=== PATIENT | male | born 1960 | race Caucasian/White ===

== ENCOUNTER → 2024-05-11 09:36 | Outpatient (REF) | payer OTHER, SELFPAY | LOC: HWRAD 09:36 | PROVIDERS: ATTENDING PHYSICIAN Specialist; FAMILY PHYSICIAN Family Medicine | DX: N28.89 Other specified disorders of kidney and ureter (principal) | CPT/HCPCS: 76775 ==

== ENCOUNTER → 2025-01-07 06:52 | Outpatient (REF) | payer OTHER, SELFPAY | LOC: PAVMRI 06:52 | PROVIDERS: ATTENDING PHYSICIAN Orthopaedic Surgery; FAMILY PHYSICIAN Family Medicine | DX: M25.561 Pain in right knee (principal) | CPT/HCPCS: 73721 ==

== ENCOUNTER → 2025-01-11 14:23 | Outpatient (REF) | payer OTHER, SELFPAY ==
[2025-01-11 15:44] LABS: % Basophils 0.1 % (0-2); % Eosinophils 0.8 % (0-6); % Immature Granulocytes 0.3 % (0-0.5); % Lymphocytes 15.4 % (20.5-51.1); % Monocytes 6.9 % (1.7-9.3); % Neutrophils 76.5 % (42.2-75.2); Absolute Eosinophils 0.1 10^3/uL (0-0.7); Absolute Lymphocytes 1.1 10^3/uL (1.2-3.4); Absolute Monocytes 0.5 10^3/uL (0.1-0.6); Absolute Neutrophils 5.4 10^3/uL (1.4-6.5); Hematocrit 45.4 % (39.0-52.0); Hemoglobin 15.4 g/dL (13.0-18.0); Mean Corp Hgb Conc. 33.9 g/dL (33.0-37.0); Mean Corpuscular Hgb 30.6 pg (27.0-31.0); Mean Corpuscular Volume 90.1 fL (80.0-94.0); Mean Platelet Volume 9.9 fL (7.4-10.4); Nucleated Red Blood Cells % 0 % (-); Platelet Count 182 10^3/uL (130-400); Red Blood Cell Count 5.04 10^6/uL (4.70-6.10); Red Cell Dist. Width 13.9 % (11.5-14.5); White Blood Cell Count 7.1 10^3/uL (4.8-10.8)
[2025-01-11 15:55] LABS: Blood Urea Nitrogen 22 mg/dl (9-20); Calcium 9.6 mg/dl (8.4-10.2); Carbon Dioxide 31 mmol/L (22-30); Chloride 106 mmol/L (98-107); Glucose 89 mg/dl (70-99); Potassium 4.3 mmol/L (3.5-5.1); Sodium 139 mmol/L (135-145); eGFR > 60.00
== END ==
LOC: REG 14:23
PROVIDERS: ATTENDING PHYSICIAN Orthopaedic Surgery
DX: Z01.818 Encounter for other preprocedural examination (principal)
CPT/HCPCS: 36415; 80048; 85025; 93005

== ENCOUNTER → 2025-05-18 06:35 | Outpatient (REF) | payer OTHER, SELFPAY | LOC: MRI 3T 06:35 | PROVIDERS: ATTENDING PHYSICIAN Specialist; FAMILY PHYSICIAN Family Medicine | DX: N28.89 Other specified disorders of kidney and ureter (principal) | CPT/HCPCS: 74181 ==